=== PATIENT | male | born 1965 | race Caucasian/White ===

== ENCOUNTER → 2019-09-20 | Outpatient (CLI) | payer OTHER ==
--- NOTE | 2019-09-20 11:17 | REP ---
Clinical: COPD. Preoperative assessment. Technique: PA and lateral. Comparison: None. Findings: A small/moderate right pleural effusion is appreciated along with changes to suggest mild COPD/emphysematous disease. Impression: Small/moderate right pleural effusion. Electronically Signed by Juan Carlos Coker MD 09/20/2019 11:08 A
[2019-09-20 11:22] LABS: INR 1.06; PROTHROMBIN TIME 13.5 SECONDS (11.8-14.0)
[2019-09-20 11:40] LABS: ALBUMIN 3.9 GM/DL (3.2-5.2); ALT/SGPT 39 U/L (12-78); BILIRUBIN,TOTAL 0.4 MG/DL (0.2-1.0); BLOOD UREA NITROGEN 24 MG/DL (7-18); CALCIUM LEVEL 8.8 MG/DL (8.5-10.1); CARBON DIOXIDE LEVEL 25 MEQ/L (21-32); CHLORIDE LEVEL 109 MEQ/L (98-107); CHOLESTEROL LEVEL 233 MG/DL (<200); CHOLESTEROL RISK RATIO 6.472 (<5); CREATININE FOR GFR 0.99 MG/DL (0.70-1.30); GLOMERULAR FILTRATION RATE > 60.0 (>56); GLUCOSE, FASTING 101 MG/DL (70-100); HDL CHOLESTEROL 36 MG/DL (>40); LDL CHOLESTEROL 171 MG/DL (<100); NON-HDL-C 197 MG/DL; POTASSIUM SERUM 4.5 MEQ/L (3.5-5.1); SODIUM LEVEL 140 MEQ/L (136-145); THYROID STIMULATING HORMONE 0.021 uIU/ML (0.358-3.740); THYROXINE (T4) 14.3 UG/DL (4.5-12.0); TOTAL PROTEIN 7.8 GM/DL (6.4-8.2); TRIGLYCERIDES LEVEL 132 MG/DL (<150)
[2019-09-20 11:41] LABS: TOTAL T3 101.5 NG/DL (60.0-181.0)
--- NOTE | 2019-09-20 13:17 | ECGEPIP ---
[facility] Test Date: 2019-09-20 Pat Name: KEON KANG Department: Room: - Gender: Male Podiatric Surgeon: ROXANNA : 1965 Requested By: Deni Rose Order Number: [id number] Reading MD: Davon Barry Measurements Intervals [place] Rate: 68 P: 45 HI: 154 QRS: 15 QRSD: 97 T: 30 QT: 366 QTc: 392 Interpretive Statements SINUS RHYTHM Borderline low limb lead voltages. Otherwise within normal limits. No prior ECG available for comparison at the time of interpretation. Electronically Signed on 09-20-2019 13:17:38 EST by Davon Barry
== END ==
LOC: M LAB 10:21
PROVIDERS: ATTEND Family Medicine
DX: Z01.818 Encounter for other preprocedural examination (principal); J44.9 Chronic obstructive pulmonary disease, unspecified; E03.9 Hypothyroidism, unspecified; J90 Pleural effusion, not elsewhere classified

== ENCOUNTER → 2020-09-24 | Outpatient (CLI) | payer BC ==
--- NOTE | 2020-09-24 18:00 | REP ---
INDICATION: DJD, SCIATICA. COMPARISON: Comparison radiographs are from April 13, 2015.. TECHNIQUE: Five views. FINDINGS: Five views of the lumbar spine show preserved vertebral body heights and normal alignment. There is degenerative disc narrowing and discogenic spurring at L4-5 and L5-S1. There is vacuum phenomenon at L5-S1 disc. These findings are radiographically unchanged. Pedicles and posterior elements are intact. Psoas margins are symmetric. Sacrum and SI joints are intact. Mild vascular calcification is noted. IMPRESSION: Degenerative spondylosis changes in the lumbar spine as above. No acute bony abnormality. <Electronically signed by Sterling Padilla > 09/24/20 [id number]
--- NOTE | 2020-09-24 18:01 | REP ---
INDICATION: DJD, SCIATICA. COMPARISON: None. TECHNIQUE: AP and frogleg views of both hips, four views. FINDINGS: Femoral heads are smooth and rounded and hip joint spaces are preserved. Periarticular soft tissues are unremarkable. There is minimal bilateral superior acetabular lipping. This is compatible with early osteoarthritis. Some vascular calcification is noted. IMPRESSION: Early acetabular spurring. No acute bony abnormality. <Electronically signed by Sterling Padilla > 09/24/20 [id number]
== END ==
LOC: M RAD 14:36
PROVIDERS: ATTEND Family Medicine
DX: M54.30 Sciatica, unspecified side (principal); M81.0 Age-related osteoporosis without current pathological fracture; M51.36 Other intervertebral disc degeneration, lumbar region; M25.78 Osteophyte, vertebrae; M25.752 Osteophyte, left hip; M25.751 Osteophyte, right hip

== ENCOUNTER → 2020-10-29 | Outpatient (CLI) | payer BC ==
[2020-10-29 15:07] LABS: HEMATOCRIT 47.1 % (42.0-52.0); HEMOGLOBIN 15.4 g/dl (13.5-17.5); MEAN CORPUSCULAR HEMOGLOBIN 30.6 pg (27.0-33.0); MEAN CORPUSCULAR HGB CONC 32.7 g/dl (32.0-36.5); MEAN CORPUSCULAR VOLUME 93.6 fl (80.0-96.0); PLATELET COUNT, AUTOMATED 232 10^3/uL (150-450); RED BLOOD COUNT 5.03 10^6/uL (4.30-6.10); WHITE BLOOD COUNT 6.9 10^3/uL (4.0-10.0)
[2020-10-29 15:35] LABS: ALBUMIN 3.8 GM/DL (3.2-5.2); ALT/SGPT 39 U/L (12-78); BILIRUBIN,TOTAL 0.4 MG/DL (0.2-1.0); BLOOD UREA NITROGEN 28 MG/DL (7-18); CALCIUM LEVEL 8.9 MG/DL (8.5-10.1); CARBON DIOXIDE LEVEL 30 MEQ/L (21-32); CHLORIDE LEVEL 105 MEQ/L (98-107); CHOLESTEROL LEVEL 264 MG/DL (<200); CHOLESTEROL RISK RATIO 6.439 (<5); CREATININE FOR GFR 1.24 MG/DL (0.70-1.30); GLOMERULAR FILTRATION RATE > 60.0 (>56); GLUCOSE, FASTING 80 MG/DL (70-100); HDL CHOLESTEROL 41 MG/DL (>40); LDL CHOLESTEROL 179 MG/DL (<100); NON-HDL-C 223 MG/DL; POTASSIUM SERUM 4.2 MEQ/L (3.5-5.1); PROSTATIC SPECIFIC AG MONITOR 0.71 NG/ML (< 4.00); SODIUM LEVEL 139 MEQ/L (136-145); TESTOSTERONE 292 NG/DL (241-827); TOTAL PROTEIN 7.4 GM/DL (6.4-8.2); TRIGLYCERIDES LEVEL 219 MG/DL (<150)
[2020-10-29 16:47] LABS: HEMOGLOBIN A1c 5.7 %
== END ==
LOC: M LAB 13:49
PROVIDERS: ATTEND Family Medicine
DX: I10 Essential (primary) hypertension (principal); R53.83 Other fatigue; E03.9 Hypothyroidism, unspecified

== ENCOUNTER → 2022-11-29 | Outpatient (CLI) | payer BC ==
[2022-11-29 09:22] LABS: HEMATOCRIT 48.6 % (42.0-52.0); HEMOGLOBIN 16.1 g/dl (13.5-17.5); MEAN CORPUSCULAR HEMOGLOBIN 30.3 pg (27.0-33.0); MEAN CORPUSCULAR HGB CONC 33.1 g/dl (32.0-36.5); MEAN CORPUSCULAR VOLUME 91.4 fl (80.0-96.0); PLATELET COUNT, AUTOMATED 242 10^3/uL (150-450); RED BLOOD COUNT 5.32 10^6/uL (4.30-6.10); WHITE BLOOD COUNT 6.8 10^3/uL (4.0-10.0)
[2022-11-29 09:34] LABS: INR 1.04; PROTHROMBIN TIME 13.8 SECONDS (12.5-14.5)
[2022-11-29 09:49] LABS: HEMOGLOBIN A1c 5.6 % (4.0-6.0)
[2022-11-29 09:54] LABS: ALBUMIN 3.7 G/DL (3.2-5.2); ALKALINE PHOSPHATASE 47 U/L (46-116); ALT/SGPT 38 U/L (7.0-40); AST/SGOT 23 U/L (<34); BILIRUBIN,TOTAL 0.5 MG/DL (0.3-1.2); BLOOD UREA NITROGEN 25 MG/DL (9-23); CALCIUM LEVEL 9.1 MG/DL (8.5-10.1); CARBON DIOXIDE LEVEL 29 MMOL/L (20-31); CHLORIDE LEVEL 106 MMOL/L (98-107); CHOLESTEROL LEVEL 224 MG/DL (<200); CHOLESTEROL RISK RATIO 5.75 (<5); CREATININE FOR GFR 1.02 MG/DL (0.70-1.30); GLOMERULAR FILTRATION RATE > 60.0 (>56); GLUCOSE, FASTING 99 MG/DL (60-100); HDL CHOLESTEROL 38.9 MG/DL (>40); LDL CHOLESTEROL 160.5 MG/DL (<100); NON-HDL-C 185.1 MG/DL; POTASSIUM SERUM 4.9 MMOL/L (3.5-5.1); SODIUM LEVEL 138 MMOL/L (136-145); TOTAL PROTEIN 7.2 G/DL (5.7-8.2); TRIGLYCERIDES LEVEL 123 MG/DL (<150)
[2022-11-29 09:56] LABS: THYROID STIMULATING HORMONE 2.004 uIU/ML (0.55-4.78); TOTAL 25(OH) VITAMIN D 78.9 NG/ML (20.0-100.0)
== END ==
LOC: M RAD 08:22 → M LAB 08:22
PROVIDERS: ATTEND Family Medicine
DX: Z01.818 Encounter for other preprocedural examination (principal); J44.9 Chronic obstructive pulmonary disease, unspecified